=== PATIENT | female | born 1985 | race Two or more races ===

== ENCOUNTER 2018-06-30 09:18 | Emergency (ER) | payer OTHER ==
[~2018-06-30] VITALS: Ht 172.7 cm; Wt 93.4 kg
[2018-06-30] MEDS ORDERED: HUMALOG 75/255 UNIT1 SUBQ (09:28)
[2018-06-30] MEDS ORDERED: LANTUS5 UNITS SUBQ (09:28)
[2018-06-30 09:47] LABS: APPEARANCE,URINE SLIGHTLY CLOUDY; BILIRUBIN, URINE NEGATIVE (NEGATIVE); COLOR,URINE PALE YELLOW; GLUCOSE, URINE (UA) 1+ (NEGATIVE); KETONES,URINE NEGATIVE (NEGATIVE); LEUKOCYTE ESTERASE ,URINE 3+ (NEGATIVE); NITRITE,URINE NEGATIVE (NEGATIVE); PH,URINE 5 (4.5-8.0); PROTEIN,URINE 2+ (NEGATIVE); UROBILINOGEN,URINE NORMAL MG/DL (0.0-1.0)
--- NOTE | 2018-06-30 09:50 | Emergency Room Report ---
History of Present Illness General Chief Complaint: Female Urogenital Problems Source: Patient Present Illness HPI This patient c/o dysuria, urgency, frequency about two days. No abd pain, no vag d/c. LMP April 27. She took home test yesterday and positive. PMD appt. next week for that. Allergies: Coded Allergies: CODEINE (Verified Allergy, Unknown, 06/30/18) Patient History Last Menstrual Period: 04/27/2018 Now: Yes : 3 Para: 2 Nursing Documentation-PMH Past Medical History: No History, Except For Hx Diabetes: Yes - Type 1 Review of Systems Constitutional: Denies: fever Eye: Denies: acuity changes Respiratory: Denies: cough, shortness of breath Cardiovascular: Denies: chest pain Gastrointestinal: Denies: nausea, vomiting Genitourinary: Reports: see HPI, dysuria, urgency Skin: Denies: rash Neurological: Denies: headache All Other Systems: negative except mentioned in HPI Physical Exam Vital Signs Date Time Temp Pulse Resp B/P (MAP) Pulse Ox O2 Delivery O2 Flow Rate FiO2 06/30/18 09:23 98.4 90 14 120/72 99 Room Air 98.4 General Appearance: well appearing, no apparent distress Head: normocephalic, atraumatic ENT: hearing grossly normal, normal voice Neck: full range of motion, supple Respiratory: no respiratory distress, speaking full sentences Musculoskeletal: no calf tenderness Neurologic: alert, normal gait Psychiatric: mood/affect normal Skin: no rash Medical Decision Making Diagnostic Impression: Primary Impression: UTI (urinary tract infection) Last Vital Signs Date Time Temp Pulse Resp B/P (MAP) Pulse Ox O2 Delivery O2 Flow Rate FiO2 06/30/18 09:23 98.4 90 14 120/72 99 Room Air 98.4 Status: improved Disposition: HOME, SELF-CARE Condition: Stable Scripts Nitrofurantoin Monohyd/M-Cryst* (MACROBID 100 MG*) 100 Mg Capsule 100 MG ORAL EVERY 12 HOURS for 7 Days, CAP Prov: Reese Manzo M.D. 06/30/18 Referrals: [facility],REFERR[facility] (PCP) Patient Instructions: Urinary Tract Infection Reese Manzo M.D. Jun 30, 2018 09:50
[2018-06-30] MEDS ORDERED: NITROFURANTOIN100 M2 ORAL (10:10)
[2018-06-30 10:43] VITALS: BP 113/65
== END 2018-06-30 10:45 | disposition home or self-care (01) ==
LOC: EMR 09:45
DX: O23.41 Unspecified infection of urinary tract in pregnancy, first trimester (principal); O24.011 Pre-existing type 1 diabetes mellitus, in pregnancy, first trimester; E10.9 Type 1 diabetes mellitus without complications; Z3A.01 Less than 8 weeks gestation of pregnancy
CPT/HCPCS: 81001; 87086; 87181; 99283